=== PATIENT | female | born 1985 | race Caucasian/White ===

== ENCOUNTER 2022-01-09 11:14 | Emergency (ER) | payer OTHER, SELFPAY ==
[2022-01-09 11:16] VITALS: BP 145/78; PULSE 78; RESP 16; TEMP 37.2; O2SAT 99; BMI 22.4
--- NOTE | 2022-01-09 11:57 | EDS_ITS ---
HPI HPI - Female History of Present Illness Chief Complaint: Complaint Informant: patient Pain Pain: Positive for Pelvic Pain Onset: Weeks (6-8) Context: Gradual Onset Timing: Waxes and wanes Quality: Positive for Burning and - (Pressure) Location: Suprapubic Worsened by: - (Urination) Relieved by: - (Nothing) Bleeding Issue: Negative for Vaginal bleeding Associated Symptoms Associated Symptoms: Positive for Dysuria and Frequency; Negative for Hematuria Narrative Narrative: Patient presents with dysuria that has been waxing and waning over the last 6 to 8 weeks. Patient states she would be diagnosed with a urinary tract infection and given a prescription for antibiotics and Pyridium. Patient states that her symptoms would improve while she was on the antibiotics and Pyridium. Patient states that approximately 5 days after she was stopped the Pyridium and antibiotics, her symptoms will return. Patient admits to some pressure in the suprapubic area. Patient states she has burning with urination. Patient denies any abnormal vaginal bleeding or discharge. PFSH PFSH Medical History no medical history no medical history Home Medications nitrofurantoin monohydrate/macrocrystals 100 mg capsule 100 mg PO Q12 #14 CAPSULES 01/09/22 [Rx Last Taken Unknown] Allergy/AdvReac Type Severity Reaction Status Date / Time No Known Allergies Allergy Verified 01/09/22 11:15 Family History no significant family his Surgical History (Updated 01/09/22 @ 12:[address] Simone Edwards DO) H/O section Surgical History no surgical history Social History Smoking Status: Never smoker ROS ROS ED Constitutional Constitutional ED: Denies chills or fever(s) Eyes Eyes: Denies blurry vision or change in vision ENT ENT ED: Denies rhinorrhea or sore throat Cardiovascular Cardiovascular: Denies chest pain or palpitations Respiratory/Chest Respiratory/Chest: Denies cough or dyspnea Gastrointestinal Gastrointestinal: Reports abdominal pain; Denies nausea or vomiting Genitourinary Genitourinary ED: Reports dysuria; Denies hematuria Musculoskeletal Musculoskeletal: Denies back pain or neck pain Integumentary Denies abscess or rash Neurologic Neurologic: Denies headache(s) or weakness Allergic/Immunologic Allergic/Immunologic ED: Denies mouth swelling or urticaria EXAM Physical Exam Const Vital Signs: 01/09/22 11:16 Temperature 98.9 F Temperature Source Temporal Pulse Rate 78 Respiratory Rate 16 Blood Pressure 145/78 H Blood Pressure Mean 100 Pulse Ox 99 Positive well nourished and well developed General Appearance ED: well developed HEENT Reports moist mucous membranes Neck supple and no JVD Resp normal respiratory effort and clear to auscultation bilaterally Cardio regular rate, regular rhythm and no murmurs GI normal to inspection, nondistended, normoactive bowel sounds Palpation: soft and tender suprapubic; Negative for guarding Extremity normal to inspection General Extremety ED: Negative for edema or tenderness General Extremity: Negative for edema Neuro oriented x3, CN's II-XII intact bilaterally and no sensory deficits noted Sensorium / Orientation: alert Motor Exam: strength 5/5 throughout Psych mental status grossly normal Skin no rashes or lesions noted MDM MDM MDM Narrative Medical decision making narrative: Urinalysis shows leukocyte esterases of 500 with 10-25 white blood cells. There is 1+ bacteria. Occult blood was 250 but there were 0 red blood cells seen. Urine was negative. Urine culture was ordered. Patient was given a prescription for Macrobid. Patient was instructed to follow-up with her primary care physician in 3 to 5 days. Patient understood and was agreeable with the plan. All questions were answered. Lab Data Labs: Laboratory Results - last 24 hr 01/09/22 12:04 Urine Color Yellow Urine Clarity Clear Urine pH 8.0 Ur Specific [place] 1.010 Urine Protein 30 H Urine Glucose (UA) Normal Urine Ketones Negative Urine Occult Blood 250 H Urine Nitrite Negative Urine Bilirubin Negative Urine Urobilinogen Normal Ur Leukocyte Esterase 500 H Urine RBC 0 SEEN Urine WBC 10-25 SEEN Ur Squamous Epith Cells 0-5 SEEN Urine Bacteria 1+ Urine Mucus 0 SEEN Urine Test Negative Discharge Plan Triage Chief Complaint: Complaint ED Provider: Simone Edwards Dx/Rx/DC Orders Clinical Impression: Urinary tract infection Instructions: ED Cystitis Female Adult Prescriptions: New nitrofurantoin monohyd/m-cryst [nitrofurantoin monohyd/m-cryst] 100 MG capsule 100 mg PO Q12 Qty: 14 0RF Primary Care Provider: Care Physician,No Primary Referrals: Marti Childs MD [Med Staff - Active Staff] - 3-5 Days Care Physician,No Primary [Primary Care Provider] - Disposition Disposition: Home, Self Care
[2022-01-09 12:18] LABS: Mucous, Urine 0 SEEN /hpf (<or=2+); Red Blood Cells-Urine 0 SEEN /hpf (0-5)
[2022-01-09 12:26] LABS: Color, Urine Yellow (Yellow); Glucose, Dipstick Normal (Normal); Ketone-Dipstick Negative (Negative); Leukocyte Esterase-Dipstick 500 /ul (Negative); Nitrite-Dipstick Negative (Negative); Occult Blood-Urine 250 /ul (Negative); Protein-Dipstick 30 mg/dl (Negative); Urine Bilirubin Dipstick Negative (Negative); Urine Clarity Clear (Clear); Urine Urobilinogen Normal (Normal)
[2022-01-09 12:39] LABS: Bacteria 1+ /hpf (None Seen); Internal QC Validated? YES +Cl - CLEAR BKGD; Pregnancy, Urine Negative Negative; Squamous Epithelial Cells - UA 0-5 SEEN /hpf (5-10); White Blood Cells 10-25 SEEN /hpf (0-5)
[2022-01-09] MEDS: Nitrofurantoin Macrocrystals 100 MG Capsule PO (13:38)
== END 2022-01-09 13:40 | disposition home or self-care (01) ==
PROVIDERS: Emergency Provider Emergency Medicine; Visit Provider Emergency Medicine
DX: N39.0 Urinary tract infection, site not specified (principal)
CPT/HCPCS: 81001; 81025; 87077; 87086; 87088; 87186; 99283

== ENCOUNTER 2022-03-19 04:09 | Emergency (ER) | payer OTHER, SELFPAY ==
[2022-03-19 04:11] VITALS: BP 117/69; PULSE 78; RESP 16; TEMP 36.4; O2SAT 100; BMI 24.1
--- NOTE | 2022-03-19 04:45 | EKG12_ITS ---
Test Reason : SYNCOPE Blood Pressure : / mmHG Vent. Rate : 072 BPM Atrial Rate : 072 BPM P-R Int : 194 ms QRS Dur : 096 ms QT Int : 398 ms P-R-T Axes : 069 037 042 degrees QTc Int : 435 ms Normal sinus rhythm Low voltage QRS Confirmed by CINTIA BAINS, MARGARITA ([id number]), international editorial producer RISA SHI ([id number]) on 03/22/2022 12:24:38 PM Referred By: CANELO Confirmed By:MARGARITA CHAMBERLAIN MD
--- NOTE | 2022-03-19 04:45 | CT_ITS ---
INDICATION: syncope EXAMINATION: CT Head or Brain W/O Contrast Injection TECHNIQUE: Multiple axial images were obtained of the head without intravenous contrast. A radiation dose optimization technique was used for this scan. IV Contrast dosage and agent: None. COMPARISON: None FINDINGS: BRAIN PARENCHYMA: No intra- or extra-axial hemorrhage. No evidence of acute major territorial infarct. No intracranial mass or mass effect. There is preservation of the [place]/white matter interface. Posterior fossa structures are unremarkable. CSF SPACES: Appropriate for age. No hydrocephalus. Basal cisterns are patent. CALVARIUM, SKULL BASE, PARANASAL SINUSES AND MASTOID AIR CELLS: Calvarium is intact. No acute findings within imaged paranasal sinuses. Mastoid air cells are well-pneumatized. ORBITS: No acute findings. CT/Brain/Head without Contrast IMPRESSION: No evidence of acute intracranial abnormality. Electronically Signed: Beau Flores MD at 5:30 EST ,
[2022-03-19 05:15] LABS: Absolute Lymphocyte Count 2.89 X10^3/uL (0.83-4.51); Absolute Neutrophil Count 2.8 X10^3/uL (2.0-7.7); Basophil# 0.03 X10^3/uL; Basophil% 0.5 % (0-1); Eosinophil# 0.16 X10^3/uL; Eosinophils% 2.5 % (0-5); Hematocrit 38.6 % (37-47); Hemoglobin 12.9 g/dL (12.0-15.0); Lymphocyte # 2.89 X10^3/ul (0.83-4.51); Lymphocyte % 45.4 % (19-41); Mean Corp Hgb Conc 33.4 g/dL (32-36); Mean Corpuscular Hgb 30.2 pg (27.0-32.0); Mean Corpuscular Volume 90.4 fL (81-99); Mean Platelet Vol. 11.1 fl (6.2-12.0); Monocyte# 0.51 X10^3/uL; NRBC Flagged by Analyzer 0 % (0-5); Neutrophil # 2.75 X10^3/uL (2.7-7.7); Neutrophil % 43.3 % (47-70); Platelet Count 204 K/mm3 (150-450); RBC Distribution Width CV 13.2 % (11.6-14.6); RBC Distribution Width SD 43.4 fl (35.1-43.9); Red Blood Count 4.27 M/mm3 (4.2-5.4); White Blood Count 6.4 K/mm3 (4.4-11.0)
[2022-03-19 05:26] LABS: Internal QC Validated? YES +Cl - CLEAR BKGD; Pregnancy, Serum, hCG Quali. NEGATIVE Negative
[2022-03-19 05:31] LABS: Anion Gap 6 (5-15); BUN 15 mg/dL (7-18); BUN/Creat Ratio 21.9 RATIO (10-20); Calcium,Total 8.6 mg/dL (8.5-10.1); Chloride 104 mmol/L (98-107); Creatinine, Serum 0.68 mg/dL (0.55-1.02); EST Glomerular Filtration Rate 102 mL/min (>60); Est Glom Filt Rate - Afr Amer 124 mL/min (>60); Estimated Creatinine Clearance 118.38 ml/min; Glucose 104 mg/dL (74-106); Magnesium 2.1 mg/dL (1.6-2.6); Potassium 3.5 mmol/L (3.5-5.1); Sodium Level 139 mmol/L (136-145)
[2022-03-19 05:49] VITALS: BP 118/65; BP 127/72; BP 127/83; PULSE 69; PULSE 76; PULSE 84
[2022-03-19] MEDS: 0.9% Normal Saline 1,000 ML 999 ML IV (06:05)
--- NOTE | 2022-03-19 06:21 | EDS_ITS ---
HPI History of Present Illness Chief Complaint: Syncope Narrative Narrative: Patient is a 36-year-old female with reported history of recurrent UTIs but otherwise no medical problems. She states that her has a bad back and was having back pain this evening and she got up to get his medication. She states that she was getting the meds and bring it to the bed when she began to feel lightheaded and nauseous and then had a syncopal event. was awake and witnessed this and says she struck the right side of her head on a plant next to the bed. Patient denies any history of bleeding disorder or blood thinner use. Reportedly there was no seizure-like activity and patient states when she awoke she knew who she was and where she was at. However because of the syncopal event occurring in the head trauma she was brought in for evaluation [facility] Home Medications NK 03/19/22 [History Last Taken Unknown] Allergy/AdvReac Type Severity Reaction Status Date / Time No Known Allergies Allergy Verified 03/19/22 04:10 Surgical History (Updated 01/09/22 @ 12:[address] Simone Edwards DO) H/O section Social History Smoking Status: Never smoker ROS ROS ED Constitutional Constitutional ED: Denies chills or fever(s) Eyes Eyes: Denies change in vision ENT ENT ED: Denies sore throat Cardiovascular Cardiovascular: Reports other Details: Positive syncope ; Denies chest pain, palpitations or racing heartbeat Respiratory/Chest Respiratory/Chest: Denies cough or dyspnea Gastrointestinal Gastrointestinal: Reports nausea; Denies abdominal pain, diarrhea or vomiting Genitourinary Genitourinary ED: Denies dysuria Musculoskeletal Musculoskeletal: Denies back pain, myalgias or neck pain Integumentary Reports Abrasions; Denies rash Neurologic Neurologic: Reports headache(s) Hematologic/Lymphatic Hematologic/Lymphatic: Denies easy bleeding or easy bruising EXAM Physical Exam Const Vital Signs: 03/19/22 04:11 03/19/22 04:18 03/19/22 05:49 Temperature 97.5 F L Temperature Source Oral Pulse Rate 78 Pulse Rate [Lying] 76 Pulse Rate [Sitting (for 1 minute prior to obtaining)] 69 Pulse Rate [Standing (for 1 minute prior to obtaining)] 84 Respiratory Rate 16 Respiratory Effort Normal Respiratory Pattern Normal Blood Pressure 117/69 Blood Pressure [Lying] 118/65 Blood Pressure [Sitting (for 1 minute prior to obtaining)] 127/72 H Blood Pressure [Standing (for 1 minute prior to obtaining)] 127/83 H Blood Pressure Mean 85 Blood Pressure Mean [Lying] 82 Blood Pressure Mean [Sitting (for 1 minute prior to obtaining)] 90 Blood Pressure Mean [Standing (for 1 minute prior to obtaining)] 97 Pulse Ox 100 Oxygen Delivery Method Room Air Positive well nourished and well developed General Appearance ED: well developed HEENT Reports moist mucous membranes HEENT Narrative: Has a small one by one hematoma along the right temporal portion of her scalp. There is a 2 cm linear epidermal abrasion at the site as well consistent with report of head trauma. Otherwise no signs of depressed or basilar skull fracture Eyes PERRL and EOMs intact bilaterally Eyes Narrative: No hyphema Neck supple Neck Narrative: No midline pain with palpation no bony deformity or step-off of the cervical spine Patient can move her neck in all directions without pain Chest Wall palpation of chest normal Resp normal respiratory effort and clear to auscultation bilaterally Cardio regular rate and regular rhythm Rate: other Other Details: Radial pulses are plus 2 out of 4 bilaterally are equal and symmetric GI normal to inspection, nondistended, normoactive bowel sounds, non-tender, non- distended and no masses Auscultation: normoactive bowel sounds Palpation: soft Back/Spine Back/Spine Narrative: No bony deformity or step-off of the thoracic or lumbar spine no midline pain with palpation Extremity normal to inspection Extremity Narrative: Pelvis is stable there is no shortening or external rotation of either lower extremity. Patient can lift both arms and legs without difficulty Neuro oriented x3 and CN's II-XII intact bilaterally Neuro Narrative: Cranial nerves II through XII are grossly intact there are no focal neurologic deficits. No pronator drift no dysmetria no truncal ataxia NIH stroke scale score of 0 Sensorium / Orientation: alert Psych mental status grossly normal Skin no rashes or lesions noted Skin Narrative: Cephalhematoma with superficial abrasion along the right temporal portion of the scalp as documented above MDM MDM MDM Narrative Medical decision making narrative: Patient presented to the ER with stable vitals and she was awake and alert with normal neurologic exam. She reported a one-time syncopal event with sounded most consistent with orthostasis. However as she did strike her head and had syncopal event I like to perform a head CT as well as a basic work-up. Labs revealed no changes to her blood volume kidney function or electrolyte. EKG is normal sinus rhythm and on the heart monitor she has no abnormal rhythm noted. Orthostatic vitals were also negative. Therefore at this time with a one-time syncopal event with normal head CT and EKG no dysrhythmia noted on the trash collector and normal labs there is no need for further work-up or admission. Patient was given 1 L of fluid as her orthostatic vitals were technically normal and she was able to ambulate without issues and therefore will be discharged home at this time Lab Data Attestation: I reviewed the patient's lab results. Labs: Laboratory Results - last 24 hr 03/19/22 03/19/22 03/19/22 04:22 04:22 04:22 WBC 6.4 RBC 4.27 Hgb 12.9 Hct 38.6 MCV 90.4 MCH 30.2 MCHC 33.4 RDW Std Deviation 43.4 RDW Coeff of John 13.2 Plt Count 204 MPV 11.1 Immature Gran % (Auto) 0.300 Neut % (Auto) 43.3 L Lymph % (Auto) 45.4 H Porter % (Auto) 8.0 Eos % (Auto) 2.5 Baso % (Auto) 0.5 Absolute Neuts (auto) 2.8 Absolute Lymphs (auto) 2.89 Nucleated RBC % 0 Sodium 139 Potassium 3.5 Chloride 104 Carbon Dioxide 29.0 Anion Gap 6 BUN 15 Creatinine 0.68 Estim Creat Clear Calc 118.38 Est GFR (MDRD) Af Amer 124 Est GFR (MDRD) Non-Af 102 BUN/Creatinine Ratio 21.9 H Glucose 104 Calcium 8.6 Magnesium 2.1 Serum , Qual NEGATIVE Radiography Diagnostic Testing: Clinical Impression(s) from Imaging Studies Brain CT 03/19/22 04:45 IMPRESSION: No evidence of acute intracranial abnormality. Electronically Signed: Beau Flores MD at 5:30 EST , Discharge Plan Triage Chief Complaint: Syncope ED Provider: Aubrey Dior Dx/Rx/DC Orders Clinical Impression: Syncope, Closed head injury, Hematoma Instructions: ED Head Injury (Adult), ED Fainting, Uncertain Cause Prescriptions: No Action NK Primary Care Provider: Care Physician,No Primary Referrals: Emerald Denney MD [Med Staff - Solar Development Engineer] - Care Physician,No Primary [Primary Care Provider] - Activity Restrictions/Additional Instructions: Please keep yourself well-hydrated and return to the ER should you have any further concerns Disposition Disposition: Home, Self Care
[2022-03-19 06:56] VITALS: BP 109/62; PULSE 86; RESP 16; O2SAT 97
== END 2022-03-19 06:58 | disposition home or self-care (01) ==
PROVIDERS: Emergency Provider Emergency Medicine; Visit Provider Emergency Medicine
DX: S09.90XA Unspecified injury of head, initial encounter (principal); R11.0 Nausea; R55 Syncope and collapse; W19.XXXA Unspecified fall, initial encounter
CPT/HCPCS: 70450; 80048; 83735; 84703; 85025; 93005; 99284; J7030; A4216

== ENCOUNTER → 2022-03-30 | Outpatient (CLI) | payer OTHER, SELFPAY ==
--- NOTE | 2022-03-30 12:41 | US_ITS ---
STUDY: RENAL ULTRASOUND - COMPLETE REASON FOR EXAM: Female, 36 years old. utis TECHNIQUE: Ultrasound evaluation of the kidneys was performed with real-time and static alford-scale imaging. COMPARISON: None. FINDINGS: RIGHT KIDNEY: Normal location of the right kidney, which is normal in size. The right kidney measures 10.8 cm x 5.8 cm x 5.5 cm. There is a normal cortex of the right kidney. The renal cortex measures 1.7 cm. There is no right renal mass or cyst. There are no right renal calculi. There is no right hydronephrosis. DISTAL RIGHT URETER: There is non-visualization of the distal right ureter. There is no demonstrated right ureterovesical junction calculus. There is a visualized right ureteral jet. LEFT KIDNEY: Normal location of the left kidney, which is normal in size. The left kidney measures 12.1 cm x 5.8 cm x 5.8 cm. There is a normal cortex of the left kidney. The renal cortex measures 1.4 cm. There is no left renal mass or cyst. There are no left renal calculi. There is no left hydronephrosis. DISTAL LEFT URETER: There is non-visualization of the distal left ureter. There is no demonstrated left ureterovesical junction calculus. There is a visualized left ureteral jet. BLADDER: The distended urinary bladder has a volume of 551 ml. The empty urinary bladder has a volume of 0 ml. There is a normal wall thickness of the distended urinary bladder. There is no demonstrated mass within the urinary bladder. There are no demonstrated bladder calculi. US/Kidney and Bladder IMPRESSION: Normal ultrasound of the kidneys and urinary bladder. Electronically Signed: Papa Mayorga MD at 15:13 EST ,
== END | disposition home or self-care (01) ==
PROVIDERS: Referring Provider Urology; Visit Provider Urology
DX: N39.0 Urinary tract infection, site not specified (principal)
CPT/HCPCS: 76770

== ENCOUNTER 2022-07-07 08:58 | Day surgery (SDC) | payer BC, SELFPAY ==
[2022-07-07 09:21] VITALS: BP 132/77; PULSE 81; RESP 16; TEMP 37.2; O2SAT 100; BMI 22.4
[2022-07-07 09:22] LABS: Internal QC Validated? YES +Cl - CLEAR BKGD; Pregnancy, Urine Negative Negative
[2022-07-07] MEDS: Lactated Ringers 1,000 ML 15 ML IV (09:26)
--- NOTE | 2022-07-07 10:19 | DCINST_ITS ---
Discharge Instructions Diet Discharge Diet: No restrictions Activity Discharge Activity: Return to Normal Activity May resume sexual activity in: No Restrictions Dressing / Incision Call your doctor if you observe: Fever of 101 or Higher, Inability to urinate and Inability to have a bowel movement Follow Up Care Please Follow Up With: Tamra Pierre MD When: call for appt Test Results: Test results from this visit will be discussed in further detail at your follow- up appointment, if applicable. Discharge Plan Admission Attending Provider: Tamra Pierre Primary Care Provider: Care Physician,Kristal Primary Discharge Orders/Prescriptions Prescriptions: Continued sennosides [senna] 8.6 mg Tablet 8.6 mg PO DAILY cephalexin 500 mg capsule 500 mg PO TID Label Comments: TAKE 1 CAPSULE BY MOUTH THREE TIMES A DAY Collagen Plus Vitamin C 125-740 mg Capsule 1 cap PO DAILY Probiotic 15 billion cell Capsule 1 cap PO DAILY Referrals / Follow Up: Care Physician,No Primary [Primary Care Provider] - Disposition Disposition (needs filled in before D/C Order can be placed): Home, Self Care
--- NOTE | 2022-07-07 10:20 | OP.PCM_ITS ---
Report of Operation Date of Procedure: 07/07/22 Pre-Operative Diagnosis: recurrent urinary tract infections Post-Operative Diagnosis: same Surgery/Procedure Performed:: cystoscopy, pelvic exam under anesthesia Surgeon: Tamra Pierre Type of Anesthesia: MAC Description of Procedure: The patient is a 37-year-old female with recurrent urinary tract infections. She presents for cystoscopic evaluation and pelvic exam under anesthesia. Informed consent was obtained. The patient was taken to the operating room and placed on the operating room table. Anesthesia monitored the head, neck, airw ay, IV access and vital signs throughout the case. Once anesthesia was appropriately administered, she was prepped and draped in usual sterile fashion. Pelvic examination revealed no evidence of prolapse, mass or mucosal abnormality. There was no stool palpable in the rectal vault. A digital rectal examination was not performed. The cystoscope was inserted through the urethra under direct visualization into the urinary bladder. The bladder mucosa was visualized in its entirety revealing diffuse cystitis cystica without evidence of mass, ulceration or foreign body. The patient's bladder was then emptied and the case was terminated. She was awakened and taken to the recovery room in good condition. There were no complications during this procedure. Grafts/Implants Used: none Complications none Admit VTE Documentation VTE Present on Admission: No VTE Pharm Prophylaxis ordered?: No Reason prophylaxis not ordered:: Treatment Not Indicated
[2022-07-07 10:33] VITALS: BP 113/65; BP 132/77; PULSE 75; RESP 16; TEMP 36.7; O2SAT 99
[2022-07-07 10:35] VITALS: BP 108/59; BP 132/77; PULSE 75; RESP 16; O2SAT 99
[2022-07-07 10:40] VITALS: BP 119/60; BP 132/77; PULSE 73; RESP 16; O2SAT 99
[2022-07-07 10:46] VITALS: BP 111/71; BP 132/77; PULSE 68; RESP 16; TEMP 36.9; O2SAT 98
[2022-07-07 11:17] VITALS: BP 122/78; BP 132/77; PULSE 80; RESP 18; O2SAT 98
== END 2022-07-07 11:20 | disposition home or self-care (01) ==
LOC: SDC 08:59 → AC 09:27
PROVIDERS: Anesthesiology; Referring Provider Urology; Visit Provider Urology
PROC: 0TJB8ZZ Inspection of Bladder, Via Natural or Artificial Opening Endoscopic (ICD-10-PCS; CPT 57410; principal; 2022-07-07 10:55)
DX: N39.0 Urinary tract infection, site not specified (principal); Z97.3 Presence of spectacles and contact lenses; R39.15 Urgency of urination; R35.0 Frequency of micturition
CPT/HCPCS: 57410; 52000; 00910; 81025; J7120; J2405